=== PATIENT | female | born 1965 | race Caucasian/White ===

== ENCOUNTER 2017-08-12 10:02 | Observation (INO) | payer BC ==
[~2017-08-12] VITALS: Ht 165.1 cm; Wt 63.0 kg
[2017-08-12 10:56] LABS: HEMATOCRIT 43.8 % (36.0-46.0); HEMOGLOBIN 15.2 G/DL (11.9-15.5); MCH 32.3 PG (29.0-34.0); MCHC 34.7 G/DL (30.0-36.0); MCV 93.2 FL (83-99); PLATELET COUNT 171 K/uL (156-360); RBC DIS.WIDTH-CV 12.6 % (11.8-14.6); RBC DIS.WIDTH-SD 43.7 % (39-53); WHITE BLOOD COUNT 10.9 K/uL (4.1-10.2)
[2017-08-12 11:04] LABS: CHLORIDE 106 mEq/L (99-109); POTASSIUM 4.8 mEq/L (3.7-5.4); SODIUM 138 mEq/L (136-147)
[2017-08-12 11:07] LABS: GLUCOSE 94 mg/dL (70-99); TOTAL PROTEIN 7.4 g/dL (6.4-8.3)
[2017-08-12 11:09] LABS: TOTAL BILIRUBIN 1.6 mg/dL (0.0-1.0)
[2017-08-12 11:10] LABS: ALKALINE PHOSPHATASE 51 IU/L (3-129); CREATININE 0.7 mg/dL (0.6-1.3); GFR ESTIMATE (CALCULATED) > 59 mL/min/
[2017-08-12 11:11] LABS: UREA NITROGEN (BUN) 12 mg/dL (9-23)
[2017-08-12 11:12] LABS: AST (GOT) 22 IU/L (2-34)
[2017-08-12 11:13] LABS: ALT (GPT) 13 IU/L (3-49)
[2017-08-12 11:14] LABS: LIPASE 47 U/L (1.0-51.0)
[2017-08-12 11:25] LABS: QUANTITATIVE HCG < 4.0 MIU/ML
[2017-08-12 12:06] LABS: APPEARANCE CLEAR ((CLEAR)); BILIRUBIN NEGATIVE; BLOOD NEGATIVE; COLOR YELLOW ((YELLOW)); GLUCOSE (STRIP) NEGATIVE; KETONES 20; LEUKOCYTES NEGATIVE; NITRITE NEGATIVE; PROTEIN (STRIP) NEGATIVE; UCUL ADDED? NO; UROBILINOGEN 0.2 MG/DL (0.2-1.0)
[2017-08-12 12:08] LABS: SPECIFIC GRAVITY > 1.060 (1.000-1.030)
[2017-08-12] MEDS ORDERED: FROVATRIPTAN S2.5 MG PO (15:38)
[2017-08-12 15:50] VITALS: BP 114/63
[2017-08-12 20:19] VITALS: BP 115/64
[2017-08-13 00:50] VITALS: BP 112/58
[2017-08-13 04:12] VITALS: BP 120/63
[2017-08-13 07:31] VITALS: BP 124/67
[2017-08-13 11:24] VITALS: BP 130/65
== END 2017-08-13 13:47 | disposition home or self-care (01) ==
LOC: EME 10:02 → EDOF 14:23 → 2EAST 14:23 → EDOF 14:23 → ENRESERV 14:24 → 2EAST 15:42
PROVIDERS: Emergency Medicine
DX: K56.600 Partial intestinal obstruction, unspecified as to cause (principal); E86.0 Dehydration; Z98.890 Other specified postprocedural states
CPT/HCPCS: 74177; 80053; 81003; 83690; 84702; 85027; 99281; 99285; G0378; J1885; J2405; J7030; J7040